=== PATIENT | male | born 1995 | race Caucasian/White ===

== ENCOUNTER 2017-11-16 16:32 | Emergency (ER) | payer BC ==
[~2017-11-16] VITALS: Ht 180.3 cm; Wt 77.1 kg
[2017-11-16 17:02] VITALS: BP 132/83
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
[2017-11-16] MEDS ORDERED: ROBAXIN500 MG PO (17:28)
[2017-11-16] MEDS ORDERED: LIDODERM700 M1 TOPIC (17:28)
[2017-11-16] MEDS ORDERED: TYLENOL EXTRA500 MG ORAL (17:28)
[2017-11-16 17:37] VITALS: BP 132/83
== END 2017-11-16 17:35 | disposition home or self-care (01) ==
LOC: EMR 17:20
DX: S16.1XXA Strain of muscle, fascia and tendon at neck level, initial encounter (principal); V43.62XA Car passenger injured in collision with other type car in traffic accident, initial encounter; Y92.410 Unspecified street and highway as the place of occurrence of the external cause; R51 Headache
CPT/HCPCS: 99284